=== PATIENT | male | born 2005 | race Caucasian/White ===

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

== ENCOUNTER 2024-02-03 10:30 | Outpatient (RCR) | payer OTHER, SELFPAY | END 2024-05-20 08:35 | disposition home or self-care (01) | PROVIDERS: PCP Orthopaedic Surgery Sports Medicine; Visit Provider Orthopaedic Surgery Sports Medicine | DX: Z98.890 Other specified postprocedural states (principal); M25.562 Pain in left knee; M62.81 Muscle weakness (generalized); Z51.89 Encounter for other specified aftercare | CPT/HCPCS: 97110; 97140; 97161 ==

== ENCOUNTER 2024-08-04 09:18 | Outpatient (CLI) | payer OTHER, SELFPAY ==
--- NOTE | 2024-08-04 09:15 | MR_ITS ---
EXAM: MRI of the LEFT KNEE, without contrast CLINICAL: Left knee pain with history of prior surgery. Evaluate for meniscus or ligamentous injury. COMPARISONS: MRI and x-rays 12/03/2023. TECHNICAL: Multiplanar multisequence MRI of the left knee was obtained. SEDATION: None. CONTRAST: None. FINDINGS: Ligaments: ACL: Intact and unremarkable. PCL: Intact and unremarkable. MCL: Intact and unremarkable. LCL: Intact and unremarkable. Posterolateral corner: Popliteus, biceps femoris, iliotibial band, and the popliteofibular ligament appear intact. Posteromedial corner: Semimembranosus, pes anserine tendons and posterior oblique ligament appear intact. Extensor mechanism: Patellar tendon: There are postoperative changes of the proximal tendon with the previously identified bone fragment/ossification involving the proximal patellar tendon no longer utilized. No patellar tendon disruption. Quadriceps tendon: Intact, without tendinopathy. Retinacula: Medial and lateral retinacula are intact. Fat pads: There is increased edema involving the superior Hoffa's fat. Patellofemoral joint: Patella: There is chondral heterogeneity, deep chondral fissuring and chondral delamination involving the patellar median ridge as seen on prior exam with mild subchondral reactive marrow edema. Patella neo is again noted. Trochlea: No significant chondromalacia. Tibial tubercle to trochlear interval measures approximately 13 mm. Medial compartment: Medial meniscus: No evidence of discrete meniscal tear or meniscal displacement. Medial cartilage: No significant chondromalacia. Lateral compartment: Lateral meniscus: No evidence of discrete meniscal tear or meniscal displacement. Lateral cartilage: No significant chondromalacia. Knee joint: Effusion: Physiologic left knee effusion. Intra-articular bodies:?No convincing bodies identified. Popliteal cyst: Very small. Bones: No suspicious bone marrow signal alteration or fracture line. IMPRESSION: 1. Postoperative changes of the proximal patellar tendon with the previously identified bone fragment/ossification involving the proximal patellar tendon no longer visualized. Increased edema is seen to involve superior Hoffa's fat adjacent to the proximal patellar tendon. 2. Patellar chondromalacia as seen on prior examination. 3. Patella neo. 4. No evidence of meniscal tear or ligamentous injury. [facility] Electronically signed on 08/04/2024 11:16:00 AM by Jonatan Narvaez D.O.
== END 2024-08-04 09:19 | disposition home or self-care (01) ==
LOC: MRI 09:20
PROVIDERS: Visit Provider Orthopaedic Surgery Sports Medicine
DX: M25.562 Pain in left knee (principal); M22.42 Chondromalacia patellae, left knee; M23.8X2 Other internal derangements of left knee; Z98.890 Other specified postprocedural states
CPT/HCPCS: 73721

== ENCOUNTER 2024-08-09 07:30 | Outpatient (RCR) | payer OTHER, SELFPAY | END 2024-08-31 13:32 | disposition home or self-care (01) | PROVIDERS: Visit Provider Orthopaedic Surgery Sports Medicine | DX: M76.52 Patellar tendinitis, left knee (principal); M22.42 Chondromalacia patellae, left knee; Z98.890 Other specified postprocedural states; Z51.89 Encounter for other specified aftercare | CPT/HCPCS: 97110; 97140; 97161 ==